=== PATIENT | male | born 1985 | race African-American/Black ===

== ENCOUNTER 2017-09-10 08:31 | Emergency (ER) | payer SELFPAY ==
[~2017-09-10] VITALS: Ht 175.3 cm; Wt 59.0 kg
[~2017-09-10 08:31] MED LIST: ANAP550T PO; BACT800T5 PO; GABA100C4 PO; TYLE3 PO; [UNRECOGNIZED DRUG - OTHER] IM
[2017-09-10 08:39] VITALS: BP 134/83; PULSE 102; RESP 18; TEMP 98.5; O2SAT 99
[2017-09-10 08:43] VITALS: BP 134/80; PULSE 93; RESP 18; TEMP 98.5; O2SAT 97
--- NOTE | 2017-09-10 08:45 | PD ---
HPI Chief Complaint: Laceration/Skin Injury Time Seen by Provider: 08:39 Travel History International Travel<30 days: No Contact w/Intl Traveler<30days: No Traveled to known affect area: No History of Present Illness HPI 32-year-old male complains of left hand laceration. Patient put his left hand through glass window this morning. Patient states that he was bleeding heavily at the scene. EMS was called. Dressing applied to left hand. Patient was transported to ED for evaluation. Patient states that he is up-to-date with TD booster. Patient denies any other injury. Patient states that he has some numbness sensation in the tip of left index finger. PFSH Past Medical History Cerebrovascular Accident: Yes Diminished Hearing: No Immune Disorder: Yes Past Surgical History Tonsillectomy: Yes Social History Alcohol Use: Yes Tobacco Use: Yes (ONE PCK PER DAY) Substance Use: No Allergies-Medications (Allergen,Severity, Reaction): Coded Allergies: No Known Allergies (Verified Allergy, Unknown, 09/10/17) Reported Meds & Prescriptions Reported Meds & Active Scripts Active Review of Systems General / Constitutional: No: Fever Eyes: No: Visual changes HENT: No: Headaches Cardiovascular: No: Chest Pain or Discomfort Respiratory: No: Shortness of Breath Gastrointestinal: No: Abdominal Pain Genitourinary: No: Dysuria Musculoskeletal: No: Pain Skin: No Rash Neurologic: No: Weakness Psychiatric: No: Depression Endocrine: No: Polydipsia Hematologic/Lymphatic: No: Easy Bruising Physical Exam Narrative GENERAL: Well-nourished, well-developed patient. SKIN: Focused skin assessment warm/dry. HEAD: Normocephalic. EYES: No scleral icterus. No injection or drainage. NECK: Supple, trachea midline. No JVD or lymphadenopathy. CARDIOVASCULAR: Regular rate and rhythm without murmurs, gallops, or rubs. RESPIRATORY: Breath sounds equal bilaterally. No accessory muscle use. GASTROINTESTINAL: Abdomen soft, non-tender, nondistended. MUSCULOSKELETAL: No cyanosis, or edema. BACK: Nontender without obvious deformity. No CVA tenderness. Patient has a 3 cm laceration on the left hand proximal to the MCP joint. Active bleeding noted, most likely arterial source.. Patient has some decrease in light touch sensation to the tip of left index finger. Full range of motion of the fingers. Good capillary refill. Data Data Last Documented VS Vital Signs Date Time Temp Pulse Resp B/P (MAP) Pulse Ox O2 Delivery O2 Flow Rate FiO2 09/10/17 10:37 68 18 117/57 (77) 95 Room Air 09/10/17 08:43 98.5 Orders Orders Hand, Limited (2vws) (09/10/17 08:40) Lidocaine 1% Inj (Xylocaine 1% Inj) (09/10/17 09:00) Lidocaine Pf 1% Inj (Xylocaine-Mpf 1% In (09/10/17 09:30) MDM Medical Decision Making Medical Screen Exam Complete: Yes Emergency Medical Condition: Yes Interpretation(s) Last Impressions Hand X-Ray 09/10/17 0840 Signed Impressions: CONCLUSION: Wound dressing identified. No evidence of radiopaque foreign body within the soft tissues. Differential Diagnosis Differential diagnosis including left hand laceration, vascular injury, nerve injury, tendon injury, joint injury. Narrative Course 32-year-old male with left hand laceration. Diagnosis Primary Impression: Laceration of left hand Qualified Codes: S61.412A - Laceration without foreign body of left hand, initial encounter Additional Impression: Nerve injury Patient Instructions: General Instructions Additional Instructions: Wound care daily. Keflex as directed. Follow up with hand surgeon for nerve injury. Suture removal in 10 days. Med/Other Pt SpecificInfo: Prescription(s) given Scripts Cephalexin (Keflex) 500 Mg Capsule 500 MG PO TID for Infection, #15 CAP 0 Refills Prov: West Perdomo MD 09/10/17 Disposition: 01 DISCHARGE HOME Condition: Stable West Perdomo MD Sep 10, 2017 08:45
[2017-09-10] MEDS ORDERED: LIDOCAINE HCL 1% 30 ML VIAL INFIL ONE (09:00)
[2017-09-10] MEDS ORDERED: LIDOCAINE HCL 1% PF 30 ML VIAL INFIL ONE (09:30)
--- NOTE | 2017-09-10 09:49 | RADRPT ---
EXAM DATE: 09/10/2017 9:27 AM EDT AGE/SEX: 32 years / Male INDICATIONS: Evaluate for foreign body. Laceration on the medial left hand. Patient punched a glass door. CLINICAL DATA: This is the patient's initial encounter. Patient reports that signs and symptoms have been present for 1 day and indicates a pain score of 5/10. MEDICAL/SURGICAL HISTORY: None. None. COMPARISON: No prior exams available for comparison. FINDINGS: A wound dressing is identified along the palmar aspect of the hand extending from the proximal phalan ges to the distal metacarpals. A dressing is centered over the second and third digits. Bony structures are intact. There is no evidence of radiopaque foreign bodies within the soft tissues. CONCLUSION: Wound dressing identified. No evidence of radiopaque foreign body within the soft tissues. Electronically signed by: Jovanni Dominguez MD 09/10/2017 9:48 AM EDT
[2017-09-10 10:37] VITALS: BP 117/57; PULSE 68; RESP 18; O2SAT 95
[2017-09-10] MEDS ORDERED: CEPH-460 PO (12:10)
== END 2017-09-10 12:22 | disposition home or self-care (01) ==
LOC: NEPC 08:31
DX: S61.412A Laceration without foreign body of left hand, initial encounter (principal); S64.92XA Injury of unspecified nerve at wrist and hand level of left arm, initial encounter; F17.200 Nicotine dependence, unspecified, uncomplicated; W25.XXXA Contact with sharp glass, initial encounter
CPT/HCPCS: 73120; 99283